=== PATIENT | male | born 1945 | race Caucasian/White ===

== ENCOUNTER → 2016-12-21 | Outpatient (CLI) | payer OTHER ==
[2015-05-12 22:11] VITALS: BP 131/76
--- NOTE | 2016-12-21 17:06 | RAD ---
History: Low back pain with radiculopathy Study: Lumbar spine three views Findings: There is no fracture or displacement seen. There is a mild lumbar scoliosis seen, convex left. Moderate degenerative disc disease is seen at L4-L5 and L5-S1 with mild facet arthrosis at the lower 3 levels. The SI joints appear intact. Numerous small stones are seen within the gallbladder. Impression: 1. Mild lumbar scoliosis, convex right with degenerative disk disease at L4-L5 and L5-S1 and spondyl osis. 2. Mild facet arthrosis lower 3 lumbar levels. 3. Moderate aortic calcification. 4. Cholelithiasis Reported By:
--- NOTE | 2016-12-21 18:19 | RAD ---
History: Bilateral hip pain, chronic Study: AP and frog-leg pelvis and hips Findings: There is no fracture or dislocation. There is no joint space narrowing or marginal osteoph yte formation. The pubic rami are intact. Impression: Negative pelvis and hips Reported By:
== END ==
LOC: RAD 15:26
PROVIDERS: ATTEND Nurse Practitioner Family
DX: M25.551 Pain in right hip (principal); M25.552 Pain in left hip; M54.17 Radiculopathy, lumbosacral region
CPT/HCPCS: 72100; 73521